=== PATIENT | female | born 1960 | race Two or more races ===

== ENCOUNTER 2017-04-18 18:22 | Emergency (ER) | payer MEDICARE, OTHER ==
[~2017-04-18] VITALS: Ht 165.1 cm; Wt 66.2 kg
[2017-04-18] MEDS: ALBUTEROL SULF 2.5 MG/0.5ML(0.5%) NEB SOLN NEB ONE
[2017-04-18] MEDS: IPRATROPIUM BROM 0.5 MG/2.5ML INH SOL NEB ONE
[2017-04-18 19:45] LABS: Basophils # (auto) 0.1 uL; Basophils % (auto) 0.7 % (0.0-2.0); Eosinophils # (auto) 0.9 uL; Eosinophils % (auto) 6.9 % (0.0-7.0); Hematocrit 36.4 % (36.0-46.0); Hemoglobin 12.1 g/dL (12.2-16.2); Lymphocytes # (auto) 1.4 uL; Mean Corpuscular Hemoglobin 31.4 pg (28.0-32.0); Mean Corpuscular Hgb Conc. 33.3 g/dL (32.0-36.0); Mean Corpuscular Volume 94.3 fL (80.0-100.0); Monocytes # (auto) 0.8 uL; Neutrophils # (auto) 9.8 uL; Neutrophils % (auto) 75.4 % (37.0-80.0); Nucleated Red Blood Cells % 0.1 %; Platelet Count (auto) 364 10^3/uL (140-450); Red Blood Cells 3.86 10^6/uL (4.0-5.20); Red Cell Distribution Width 12.9 % (11.8-14.3); White Blood Cell 13.1 10^3/uL (4.4-10.8)
[2017-04-18 20:03] LABS: Alanine Aminotransferase 20 U/L (13-56); Albumin 3.5 g/dL (3.4-5.0); Anion Gap 8 (5-15); Aspartate Aminotransferase 15 U/L (15-37); BUN/Creatinine Ratio 14.1; Blood Urea Nitrogen 13 mg/dL (7-18); Calcium 8.8 mg/dL (8.5-10.1); Carbon Dioxide 23 mmol/L (21-32); Chloride 106 mmol/L (98-107); GFR African American 81 mL/min; GFR Non-African American 67 mL/min; Glucose 129 mg/dL (74-106); Potassium 3.8 mmol/L (3.5-5.1); Sodium 137 mmol/L (136-145)
[2017-04-18 20:09] LABS: Alkaline Phosphatase 101 U/L (45-117); Bilirubin, Total 0.3 mg/dL (0.2-1.0); Total Protein 7.4 g/dL (6.4-8.2)
[2017-04-18] MEDS ORDERED: PENICILLIN G PROC & BENZAT 1200000 UNITS/2 ML SYRG IM ONE (23:45)
[2017-04-18 23:46] VITALS: BP 126/69
[2017-04-19] MEDS: ALBUTEROL SULF 2.5 MG/0.5ML(0.5%) NEB SOLN NEB ONE
[2017-04-19] MEDS: IPRATROPIUM BROM 0.5 MG/2.5ML INH SOL NEB ONE
== END 2017-04-19 00:26 | disposition home or self-care (01) ==
LOC: ER 18:22
DX: J02.9 Acute pharyngitis, unspecified (principal); J06.9 Acute upper respiratory infection, unspecified; J45.909 Unspecified asthma, uncomplicated
CPT/HCPCS: 36415; 71046; 80053; 83880; 84484; 85025; 85379; 93005; 94640; 96372; 99285; J0558

== ENCOUNTER 2017-06-13 04:36 | Emergency (ER) | payer MEDICARE, OTHER ==
[~2017-06-13] VITALS: Ht 165.1 cm; Wt 65.8 kg
[2017-06-13 08:15] LABS: Basophils # (auto) 0.1 uL; Basophils % (auto) 1.1 % (0.0-2.0); Eosinophils % (auto) 12.3 % (0.0-7.0); Hematocrit 39.1 % (36.0-46.0); Hemoglobin 13.3 g/dL (12.2-16.2); Lymphocytes # (auto) 1.7 uL; Lymphocytes % (auto) 19.8 % (10.0-50.0); Mean Corpuscular Hemoglobin 31.3 pg (28.0-32.0); Mean Corpuscular Volume 92.1 fL (80.0-100.0); Monocytes # (auto) 0.5 uL; Monocytes % (auto) 5.9 % (0.0-12.0); Neutrophils # (auto) 5.1 uL; Neutrophils % (auto) 60.9 % (37.0-80.0); Nucleated Red Blood Cells % 0.1 %; Platelet Count (auto) 329 10^3/uL (140-450); Red Blood Cells 4.25 10^6/uL (4.0-5.20); Red Cell Distribution Width 13.9 % (11.8-14.3); White Blood Cell 8.5 10^3/uL (4.4-10.8)
[2017-06-13 08:29] LABS: Alanine Aminotransferase 16 U/L (13-56); Albumin 3.7 g/dL (3.4-5.0); Anion Gap 5 (5-15); Aspartate Aminotransferase 13 U/L (15-37); BUN/Creatinine Ratio 18.2; Blood Urea Nitrogen 14 mg/dL (7-18); Calcium 8.7 mg/dL (8.5-10.1); Carbon Dioxide 26 mmol/L (21-32); Chloride 110 mmol/L (98-107); GFR African American 100 mL/min; GFR Non-African American 82 mL/min; Glucose 88 mg/dL (74-106); Sodium 141 mmol/L (136-145)
[2017-06-13 08:34] LABS: Alkaline Phosphatase 94 U/L (45-117); Bilirubin, Total 0.4 mg/dL (0.2-1.0); Total Protein 7.4 g/dL (6.4-8.2)
[2017-06-13 11:00] VITALS: BP 115/72
[2017-06-13] MEDS ORDERED: IPRATROPIUM BROM 0.5 MG/2.5ML INH SOL NEB ONE (11:30)
[2017-06-13] MEDS ORDERED: methylPREDNISolone SOD SUCC 125 MG/2 ML VL IM ONE (11:30)
[2017-06-13] MEDS ORDERED: ALBUTEROL SULF 2.5 MG/0.5ML(0.5%) NEB SOLN NEB ONE (11:30)
== END 2017-06-13 12:22 | disposition home or self-care (01) ==
LOC: ER 04:38
DX: J45.901 Unspecified asthma with (acute) exacerbation (principal); G89.29 Other chronic pain
CPT/HCPCS: 36415; 71045; 80053; 83880; 84484; 85025; 93005; 94640; 96372; 99285; J2930